=== PATIENT | female | born 1995 | race Caucasian/White ===

== ENCOUNTER 2020-04-16 06:33 | Emergency (ER) | payer OTHER ==
[2020-04-16] MEDS ORDERED: Morphine 4 MG/ML VIAL ONE ×2 (07:01→07:53)
[2020-04-16 07:28] LABS: Bacteria/HPF 1+ HPF (None Seen); Bilirubin Negative (Negative); Blood, Urine 1+ (Negative); Clarity Turbid (Clear); Glucose, Urine (Dipstick) Normal (Negative); Leukocyte 250 Leu/uL (Negative); Nitrite Negative (Negative); Pregnancy Test - Urine (BHCG) Negative (Negative); Pregu Control Background? CLEAR/WHITE (CLR/WHITE); Pregu Control Bar Appear? YES (CONTROL BAR); Protein, Urine (Dipstick) 100 mg/dL (Neg-Trace); Specific Gravity 1.033 (1.002-1.036); Urobilinogen Normal mg/dL (Less than 2)
--- NOTE | 2020-04-16 08:48 | CT ---
CT lumbar spine noncontrast: DATE: 04/16/2020 HISTORY: 25-year-old female with low back pain and bilateral lumbar radiculopathy. COMPARISON: None FINDINGS: [employer] view demonstrates 12 paired ribs. After 5 lumbar-type vertebrae, S1 is slightly partially lumba rized. Vertebral body heights are maintained. Mildly exaggerated lower lumbar lordosis. No scoliosis. No spondylolysis. No hydronephrosis. No major pathology of perivertebral spaces. No fractu re or destructive osseous lesion. Vacuum joint phenomenon at bilateral SI joints anteriorly, with mild sclerosis. No high-grade disc space narrowing at any level. No vacuum disc phenomenon. T12-L1: Normal L1-2: Minimal disc bulge. Otherwise normal. L2-3: Mild disc bulge indents ventral aspect of thecal sac, causing mild thecal sac stenosis. No high -grade neural foraminal stenosis. Normal facet joints. L3-4: Mild disc bulge. Mild thecal sac stenosis. No high-grade neural foraminal stenosis. Essentially normal facet joints. Slight retrolisthesis of L3 on L4. L4-5: Mild disc bulge. Mild left neural foraminal stenosis. No high-grade right neural foraminal sten osis. Mild ligamentum flavum thickening. Minimal bilateral facet DJD. No high-grade central spinal canal stenosis. Slight retrolisthesis of L4 on L5. L5-S1: Slight retrolisthesis of L5 on S1. Mild disc bulge. Superimposed small central and bilateral p aracentral focal disc herniation which indents the ventral aspect of thecal sac, and contacts the bilateral S1 nerve roots. No significant central spinal canal stenosis. Mild bilateral neural foramin al stenosis. Minimal bilateral facet DJD. IMPRESSION: 1. Mild lumbar spondylosis with multilevel mild disc bulges. 2. At L5-S1 there is a small central disc herniation which abuts the bilateral S1 nerve roots. 3. At least mild osteoarthrosis of the bilateral sacroiliac joints 4. No fracture.
[2020-04-16] MEDS ORDERED: Dexamethasone 10 MG/ML VIAL ONE (08:53)
== END 2020-04-16 09:14 | disposition home or self-care (01) ==
LOC: ERS 06:33
DX: M51.36 Other intervertebral disc degeneration, lumbar region (principal); J45.909 Unspecified asthma, uncomplicated; F41.9 Anxiety disorder, unspecified
CPT/HCPCS: 72131; 81003; 81015; 81025; 96374; 96375; 96376; J1100; J2270

== ENCOUNTER 2020-05-09 13:21 | Outpatient (CLI) | payer OTHER ==
--- NOTE | 2020-05-09 20:29 | MRI ---
MRI OF THE LUMBAR SPINE WITHOUT CONTRAST: 05/09/20 COMPARISON: None. HISTORY: Lumbar radiculopathy. TECHNIQUE: Multiplanar and multisequence MR imaging of the lumbar spine provided without contrast. FINDINGS: The sagittal STIR imaging demonstrates no focal area of osseous marrow edema. On the basis of five lumbar type vertebral bodies, the conus medullaris terminates at the L1-2 level. T12-L1: Intervertebral disc height and signal intensity is within normal limits with no significant c entral canal or neural foraminal stenosis. L1-2: Intervertebral disc height and signal intensity within normal limits with no significant centra l or neural foraminal stenosis. L2-3: Intervertebral disc height and signal intensity within normal limits with no significant centra l canal or neural foraminal stenosis. L3-4: Intervertebral disc height and signal intensity within normal limits with no significant centra l canal or neural foraminal stenosis. L4-5: Mild facet hypertrophic change is noted on the right. Intervertebral disc height and signal int ensity appears grossly unremarkable with no significant central canal or neural foraminal stenosis. L5-S1: There is disc space narrowing with disc desiccation, disc bulge, and a small central disc prot rusion. No significant associated central canal stenosis or neural foraminal stenosis. The imaged retroperitoneal structures appear grossly unremarkable. IMPRESSION: Mild degenerative change within the lumbar spine, most significant finding involving the intervertebr al disc at the L5-S1 level. POS: [facility]
== END 2020-05-09 13:22 | disposition home or self-care (01) ==
LOC: TBSIIMAG 13:21
PROVIDERS: ATTEND Surgery
DX: M47.26 Other spondylosis with radiculopathy, lumbar region (principal); M51.37 Other intervertebral disc degeneration, lumbosacral region; M51.27 Other intervertebral disc displacement, lumbosacral region
CPT/HCPCS: 72148

== ENCOUNTER 2022-11-02 15:09 | Outpatient (CLI) | payer BC | END 2022-11-02 15:10 | disposition home or self-care (01) | LOC: SCSMRI 15:09 | PROVIDERS: ATTEND Specialist | DX: M51.17 Intervertebral disc disorders with radiculopathy, lumbosacral region (principal); M47.27 Other spondylosis with radiculopathy, lumbosacral region | CPT/HCPCS: 72148 ==